=== PATIENT | female | born 2000 | race Caucasian/White ===

== ENCOUNTER 2021-01-03 16:47 | Emergency (ER) | payer OTHER ==
[~2021-01-03] VITALS: Ht 154.9 cm; Wt 92.5 kg
== END 2021-01-03 19:41 | disposition home or self-care (01) ==
LOC: ED 16:47
DX: O20.0 Threatened abortion (principal); Z91.013 Allergy to seafood; Z3A.01 Less than 8 weeks gestation of pregnancy
CPT/HCPCS: 76801; 76817; 84702; 85025; 86900; 99284-25

== ENCOUNTER 2021-01-08 16:23 | Emergency (ER) | payer OTHER ==
[~2021-01-08] VITALS: Ht 154.9 cm; Wt 92.5 kg
--- OUTSIDE RECORDS SUMMARY | 2021-01-08 16:32 | XMS ---
PreManage Notification: GIANLUCA SEAY Security [employer]er Events No recent Security Events currently on file CRITERIA MET - [facility] - 2 Visits in 30 Days CARE PROVIDERS There are no care providers on record at this time. Yvan has no Care Guidelines for this patient. L[facility] V[facility] (12 MO.) [facility] NOTE: Visits indicate total known visits. ED/C VISIT TRACKING (12 MO.) [facility] COMPLAINT: - VAGINAL BLEEDING 01/03/2021 16:48 [facility] TYPE: Emergency COMPLAINT: - POSSIBLE MISCARRIAGE DIAGNOSES: - Threatened - Less than 8 weeks gestation of - Allergy to seafood - Hemorrhage in early , unspecified INPATIENT VISIT TRACKING (12 MO.) No inpatient visits to display in this time frame [id number]
== END 2021-01-08 18:35 | disposition home or self-care (01) ==
LOC: ED 16:23
DX: O20.0 Threatened abortion (principal); Z91.013 Allergy to seafood; Z3A.01 Less than 8 weeks gestation of pregnancy
CPT/HCPCS: 76817; 99284-25

== ENCOUNTER 2021-01-22 12:36 | Emergency (ER) | payer OTHER ==
[~2021-01-22] VITALS: Ht 154.9 cm; Wt 93.0 kg
--- OUTSIDE RECORDS SUMMARY | 2021-01-22 12:44 | XMS ---
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 Yvan has no Care Guidelines for this patient. Lia VISIT COUNT (12 MO.) [address] [facility] H. TOTAL 3 NOTE: Visits indicate total known visits. ED[facility] [place] (12 MO.) 01/22/2021 12:[address] [facility] [place] TYPE: Emergency COMPLAINT: - CLOTTING 01/08/2021 16:23 [facility] [place] TYPE: Emergency COMPLAINT: - VAGINAL BLEEDING DIAGNOSES: - Allergy to seafood - Less than 8 weeks gestation of - Threatened 01/03/2021 16:48 [facility] [place] TYPE: Emergency COMPLAINT: - POSSIBLE MISCARRIAGE DIAGNOSES: - Threatened - Less than 8 weeks gestation of - Allergy to seafood - Hemorrhage in early , unspecified INPATIENT VISIT TRACKING (12 MO.) No inpatient visits to display in this time frame [email or web address]
== END 2021-01-22 13:51 | disposition home or self-care (01) ==
LOC: ED 12:36
DX: O20.0 Threatened abortion (principal); Z91.013 Allergy to seafood
CPT/HCPCS: 99283